=== PATIENT | male | born 1980 | race Caucasian/White ===

== ENCOUNTER 2023-08-22 21:34 | Emergency (ER) | payer BC ==
[2023-08-22] MEDS ORDERED: Bupivacaine PF 0.5% 30 ML VIAL ONE (23:21)
[2023-08-22] MEDS ORDERED: Bupivacaine 0.25% 10 ML VIAL ONE (23:51)
[2023-08-23] MEDS ORDERED: HYDROcodone/Acetaminophen 10/325 mg Tablet ONE (00:14)
== END 2023-08-23 02:00 | disposition home or self-care (01) ==
LOC: ERS 21:34
DX: S67.197A Crushing injury of left little finger, initial encounter (principal); S68.117A Complete traumatic metacarpophalangeal amputation of left little finger, initial encounter; W23.1XXA Caught, crushed, jammed, or pinched between stationary objects, initial encounter
CPT/HCPCS: 26951; 99282; J0665